=== PATIENT | male | born 1935 | race Caucasian/White ===

== ENCOUNTER 2020-10-25 12:26 | Inpatient (IN) | payer MEDICARE ==
[~2020-10-25] VITALS: Ht 172.7 cm; Wt 85.9 kg
[2020-10-25 13:47] LABS: BASOPHILS 0.4 % (0-2); EOSINOPHILS 3.2 % (0-7); HEMATOCRIT 38.9 % (36.0-48.0); HEMOGLOBIN 13.2 g/dL (12-16); IMMATURE GRANULOCYTES 0.1 % (0-5); LYMPHOCYTE ABS# 1.68 10x3/uL (1.18-3.74); LYMPHOCYTES 20.2 % (15-50); MCH 30.2 pg (26.0-34.0); MCHC 33.9 g/dL (31.0-37.0); MEAN PLATELET VOLUME 9.2 fL (7.4-10.4); MONOCYTES 7.9 % (2-11); NEUTROPHIL ABS# 5.68 10x3/uL (1.56-6.13); NEUTROPHILS 68.2 % (40-80); PLATELET COUNT 264 10x3/uL (130-400); RBC 4.37 10x6/uL (4.00-5.40); RDW 13.1 % (11.5-14.5); WBC 8.3 10x3/uL (4.8-10.8)
[2020-10-25 14:42] LABS: ALBUMIN 3.5 g/dL (3.4-5.0); ANION GAP 14.1 mmol/L (8-16); BILIRUBIN - TOTAL 0.38 mg/dL (0.2-1.3); CALCIUM 8.8 mg/dL (8.5-10.1); CARBON DIOXIDE 30.6 mmol/L (21.0-32.0); CHOL - HDL RATIO 3.1 ratio (2.3-4.1); CREATININE - SERUM 1.1 mg/dL (0.6-1.3); LDL-HDL RATIO 1.5 ratio (1.5-3.5); POTASSIUM - SERUM 3.7 mmol/L (3.5-5.1); PROTEIN - SERUM 6.9 g/dL (6.4-8.2); THYROID STIMULATING HORMONE 2.83 uIU/mL (0.36-3.74)
[2020-10-25] MEDS ORDERED: CARAFATE1 G PO (14:50)
[2020-10-25] MEDS ORDERED: CLONIDINE HCL0.1 MG PO (14:50)
[2020-10-25] MEDS ORDERED: ISOSORBIDE MONO30 M1 PO (14:51)
[2020-10-25] MEDS ORDERED: TYLENOL W/CODEI1 TAB PO (14:51)
[2020-10-25] MEDS ORDERED: IBUPROFEN800 MG PO (14:53)
[2020-10-25] MEDS ORDERED: PROCARDIA XL60 MG PO (14:54)
[2020-10-25] MEDS ORDERED: OMEPRAZOLE20 M1 PO (14:55)
[2020-10-25] MEDS ORDERED: KLONOPIN1 MG PO (14:55)
[2020-10-25] MEDS ORDERED: GLUCOPHAGE500 MG PO (14:56)
[2020-10-25] MEDS ORDERED: TENORMIN25 MG PO (14:56)
[2020-10-25] MEDS ORDERED: LEVSIN/ANASP0.125 MG PO (14:58)
[2020-10-25] MEDS ORDERED: DOXYCYCLINE HY100 M2 PO (15:00)
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
[2020-10-25 17:25] VITALS: BP 180/96
[2020-10-25 22:10] VITALS: BP 183/82
--- NOTE | 2020-10-25 23:24 | NUR ---
PT IS ALERT AND ORIENTED TO SELF AND PLACE. RECEIVED IN THE HALLWAY PLAYING CARDS WITH PEERS. VERY CONFUSED. WALKS AIMLESSLY AT TIMES. NO AGGRESSION NOTED. COMPLIANT WITH ALL HS MEDICATIONS. EASY TO REDIRECT. MONITOR FOR SAFETY.
[2020-10-26 08:00] VITALS: BP 151/68
[2020-10-26 08:13] LABS: RAPID PLASMA REAGIN Non Reactive (Non Reactive)
--- NOTE | 2020-10-26 11:26 | NUR ---
RECEIVED PATIENT IN HALLWAY BY NURSES STATION PACING. AWAKE AND ALERT X4. CALM AND COOPERATIVE WITH ASSESSMENT AT THIS TIME. PRESCRIBED MEDICATIONS PROVIDED ORDERED. MED COMPLIANT. PATIENT CAN BE VERY DEMANDING WITH STAFF. PATIENT TENDS TO TEST HIS BOUNDARIES AT TIMES WITH STAFF. PATIENT CONTINUES TO REQUEST NEEDED MEDICATION FOR LEG PAIN. MEDICATION PROVIDED ORDERED FOR PAIN. REDIRECT NEEDED. PATIENT CAN BECOME AGITATED AT TIMES UPON REDIRECTION. PATIENT CONTINUES TO COMPLAIN ABOUT HAVING LOOSE STOOLS. HOWEVER, KUB WAS COMPLETED PER MD ORDER AND CONSTIPATION WAS NOTED PER MD. MEDS PROVIDED ORDERED FOR CONSTIPATION. WILL CPOC.
--- NOTE | 2020-10-26 12:07 | NUR ---
RECEIVED PATIENT IN HALLWAY BY NURSES STATION SOCIALIZING WITH PEERS. AWAKE AND ALERT X2. CALM AND COOPERATIVE WITH ASSESSMENT AT THIS TIME. PRESCRIBED MEDICATIONS PROVIDED ORDERED. MED COMPLIANT AT THIS TIME. NO AGGRESSION NOTED AT THIS TIME. REDIRECT AND REORIENT NEEDED. FALL PRECAUTIONS IN PLACE FOR SAFETY. WILL CONTINUE PLAN OF CARE.
[2020-10-26 14:51] VITALS: Ht 172.7 cm; Wt 85.9 kg
[2020-10-26 20:16] VITALS: BP 128/46
--- NOTE | 2020-10-26 20:20 | NUR ---
PATIENT RECEIVED IN ROOM LYING IN BED. PATIENT ALERT AND ORIENTED TO PERSON AND PLACE ONLY. CALM AND COOPERATIVE WITH ASSESSMENT. NO AGGRESSIOM NOTED. MEDICATION COMPLIANT WITH HS MEDICATIONS. MONITOR FOR SAFETY AND FOLLOW POC.
[2020-10-27 07:38] LABS: BILIRUBIN NEGATIVE (NEGATIVE); KETONE NEGATIVE (NEGATIVE); NITRITE NEGATIVE (NEGATIVE); SQUAMOUS EPITHELIAL OCC HPF (0-4); UROBILINOGEN NORMAL mg/dL (< 2); WHITE CELLS - URINE OCC HPF (0-4)
[2020-10-27 07:39] LABS: BACTERIA FEW HPF (NONE SEEN)
[2020-10-27 08:00] VITALS: BP 123/66
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
--- NOTE | 2020-10-27 15:46 | NUR ---
Nutrition Follow-up: Diet: Diabetic PO intake: 100% x last 3 meals Last BM: 10/26/20 Wt: 190# (10/26/20) Meds noted: metformin. No new chem labs Recommend continue current diet. RD will follow-up within 7 days.
--- NOTE | 2020-10-27 17:21 | NUR ---
new order for once a day FSBS. 0600.
--- NOTE | 2020-10-27 17:37 | NUR ---
nurse speaking with . no agression noted at that time. confusion noted. pt socializies with peers and staff. ambulates. can make needs known. compliant with meds, vitals and assessments. redirect and reorient as needed. FSBS: 128 mg/dl. some weakness noted. bed alarm in place and active. will cont plan of care.
[2020-10-27 20:00] VITALS: BP 127/64
--- NOTE | 2020-10-27 21:58 | NUR ---
RECEIVED PATIENT IN HALLWAY SOCIALIZING WITH PEERS, HE IS PLEASANT, NOT AGGRESSIVE, HE IS CONFUSED. COMPLIANT WITH MEDS. CAN MAKE HIS NEEDS KNOWN. WILL FOLLOW POC
[2020-10-28 08:54] VITALS: BP 142/66
--- NOTE | 2020-10-28 13:37 | PN ---
PATIENT:CHANEL GOMEZ MEDICAL RECORD: [id number] LOCATION:NILSA Perdomo112 ADMISSION DATE: 10/25/20 PROGRESS NOTE DATE OF SERVICE: 10/27/2020 SUBJECTIVE: The patient's case was discussed with staff. He has no new complaint. OBJECTIVE: The patient denies that he would seek to harm himself or others. He is tolerating his medicines well. ASSESSMENT: Vascular dementia. PLAN: Current medicines have been reviewed. His long-term prognosis is guarded. I anticipate he can be transitioned home soon if this level of improvement continues. TRANSINT:[id number] Voice Confirmation ID: [id number] DOCUMENT ID: [id number] CHEYENNE QUEEN MD at 1337 CC: [id number] DICTATION DATE: 10/27/20 1625 EMERGENCY MEDICINE PHYSICIAN: 10/27/202052 ADM IN [place] [id number] [place] [id number]
--- NOTE | 2020-10-28 15:52 | NUR ---
ALERT, CALM, COOPERATIVE, PLEASANT. NO AGGRESSION OR OTHERVISE ADVERSE BEHAVIORS NOTED. MEDS ADMIN PER ORDERS WITH COMPLETE COMPLIANCE NOTED. NO ADVERSE REACTION TO MEDICATIONS. CONTINUE PLAN OF CARE OUTLINED.
[2020-10-28 20:00] VITALS: BP 142/68
--- NOTE | 2020-10-28 21:42 | NUR ---
RECEIVED PATIENT ON UNIT SOCIALIZING WIHT PEERS, HE IS CONFUSED TO SITUATION, HE CAN MAKE HIS NEEDS KNOWN. HE IS COMPLIANT WITH MEDS. WILL FOLLOW POC
[2020-10-29 09:55] VITALS: BP 139/75
--- NOTE | 2020-10-29 14:04 | NUR ---
NURSE SPOKE WITH MILDRED AT THIS TIME. NURSE STATED THE DOCTOR DID REQUEST ONE VISITATION BEFORE D/C. NURSE ASKED IF SHE WAS ABLE TO ATTEND ONE VISITATION THIS WEEKEND SO THAT WAY HE CAN D/C NEXT WEEK. THE DOCTOR REQUIRES ONE FACE TO FACE VISITATION. SHE STATED SHE WOULD CALL HER BROTHER IN [place] TO GET A RIDE SO SHE CAN COME VISIT. NURSE GAVE TIMES FOR VISITATION FOR THIS WEEKEND. SHE VERBALIZIED UNDERSTANDING.
--- NOTE | 2020-10-29 14:20 | NUR ---
PT REQUESTED A NERVE MEDICATION DUE TO OTHER PTS BEING VERBALLY AGGRESSIVE WITH STAFF AT THE DESK. ATIVAN 0.5 MG PO GIVEN PRN ORDER.
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
--- NOTE | 2020-10-29 14:55 | NUR ---
STAFF LOOKED IN ON PT HE WAS LAYING IN BED. REQUESTED 2 ICE CREAMS STATING HE WOULD THEN BE OKAY.
--- NOTE | 2020-10-29 15:20 | NUR ---
PRN EFFECTIVE AT THIS TIME.
--- NOTE | 2020-10-29 18:00 | NUR ---
Re'd patient this am ambulatory in hallway looking for "coffee". He is A/O times 3 to person, place, and situation. He is pleasant and quite. He is calm. Patient is med compliant and takes meds whole without difficulty.He is self fed. He has spent a lot of time with staff today discussing "country boy life", listening and talking about country music and talking bout his .l He participated in group/activities. He has shown no aggitation or aggressive behavior and denies any suicidal harm or ideations.
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
[2020-10-29 20:00] VITALS: BP 115/37
--- NOTE | 2020-10-29 20:57 | NUR ---
PT IS ALERT AND ORIENTED TO SELF AND AT TIMES SITUATION. HE IS RECEIVED IN HIS ROOM IN BED WITH EYES OPEN. HE STATES "I HOPE I CAN GET SOME SLEEP TONITE, I HAVENT BEEN SLEEPING WELL." EDUCATED PT ON HIS HS MEDICATONS. CALM AND COOPERATIVE WITH STAFF. NO AGGRESSION NOTED. COMPLIANT WITH ALL MEDICATIONS. EASY TO REDIRECT.
--- NOTE | 2020-10-29 21:52 | NUR ---
PT RESTLESS IN BED. RELATES THAT HE IS ANXIOUS. ADMINISTERED PRN ATIVAN 0.5MG PO. WILL MONITOR FOR EFFECTIVENESS.
--- NOTE | 2020-10-29 22:29 | NUR ---
PT STILL RESTLESS. RELATES ANXIETY. CONTINUE PLAN OF CARE.
[2020-10-30 08:07] VITALS: BP 109/67
--- NOTE | 2020-10-30 14:34 | NUR ---
ALERT, CALM, PLEASANT, TALKATIVE. NO AGGRESSION NOTED. MEDS ADMIN PER ORDERS. PT. FULLY MED COMPLIANT. NO ADVERSE REACTION TO MEDS. ENJOYS VISITING WITH STAFF AND OTHER PATIENTS. CONTINUE PLAN OF CARE, MONITORING FOR AGGRESSION.
[2020-10-30 20:00] VITALS: BP 146/69
--- NOTE | 2020-10-30 20:56 | NUR ---
PT IS ALERT AND ORIENTED TO SELF, PLACE AND TIME. RELATES THE HE IS CONCERNED ABOUT HIS BEING AT HOME WITH THEIR TWO DOGS ALONE IN THIS STORM. CALM AND COOPERATIVE WITH STAFF. NO AGGRESSION NOTED. COMPLIANT WITH ALL MEDICATIONS. RELATES CONCERN THAT HIS NEW MEDICATIONS WILL HELP HIM SLEEP BETTER. MEDICATION EDUCATION PROVIDED. EASY TO REDIRECT.
[2020-10-31 21:44] VITALS: BP 119/56
[2020-11-01 08:00] VITALS: BP 181/67
--- NOTE | 2020-11-01 14:04 | PN ---
PATIENT:CHANEL GOMEZ MEDICAL RECORD: [id number] LOCATION:NILSA Perdomo112 ADMISSION DATE: 10/25/20 PROGRESS NOTE DATE OF SERVICE: 10/28/2020 SUBJECTIVE: The patient's case was discussed with staff. He has no new complaint. OBJECTIVE: The patient denies intent to harm himself or others. He is impaired cognitively. ASSESSMENT: Vascular dementia. PLAN: The patient will be maintained on current medicines. I am going to ask that his come to visit him here at the hospital prior to discharge to see how he reacts. He does have this delusion about her, but that is difficult to ask him about and it would be better to see how he responds when she arrives. TRANSINT:[id number] Voice Confirmation ID: [id number] DOCUMENT ID: [id number] CHEYENNE QUEEN MD at 1404 CC: [id number] DICTATION DATE: 10/28/20 180 BRIM AND CROWN PRESSER: 10/28/20 1821 ADM IN [facility] [address] [place] [id number]
--- NOTE | 2020-11-01 17:30 | NUR ---
RECEIVED IN PATIENT ROOM. SITTING ON SIDE OF BED. CALM AND COOPERATIVE WITH CARE AND ASSESSMENT. NO AGGRESSIVE BEHAVIOR. REDIRECT AND REORIENT NEEDED. EATING DINNER AT THIS TIME. CONTINUE PLAN OF CARE.
[2020-11-01 22:16] VITALS: BP 120/54
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
--- NOTE | 2020-11-02 08:37 | NUR ---
GIL SPOKE TO PT'S , MILDRED, ABOUT DISCHARGE PLANS. MILDRED AGREED IF PT HAS A GOOD VISIT SUNDAY WITH HER SHE WILL TAKE HIM HOME. PT WILL NOT KNOW OF THESE PLANS JUST IN CASE THE VISIT DOESN'T GO WELL AND HE HAS TO STAY. NO NEEDS VOICED AT THIS TIME. GIL DID A REFERRAL TO [facility] ON [address] TO GET MORE ASSISTANCE IN THE HOME.
--- NOTE | 2020-11-02 16:48 | PN ---
PATIENT:CHANEL GOMEZ MEDICAL RECORD: [id number] LOCATION:N[facility] Perdomo112 ADMISSION DATE: 10/25/20 PROGRESS NOTE DATE OF SERVICE: 11/01/2020 SUBJECTIVE: The patient's case was discussed with staff. He has no new complaint. OBJECTIVE: The patient denies that he would seek to harm himself or others. He generally tolerates his medicines well. Eye contact is fair. ASSESSMENT: Vascular dementia. PLAN: Current medicines have been reviewed and will be maintained. His long-term prognosis is guarded. TRANSINT:[id number] Voice Confirmation ID: [id number] DOCUMENT ID: [id number] CHEYENNE QUEEN MD at 1648 CC: [id number] DICTATION DATE: 11/01/20 174 HEALTH ASSISTANT: 11/02/20 0056 ADM IN [facility] [address] [place] [address]
--- NOTE | 2020-11-02 17:48 | NUR ---
REC'D PT IN HALLWAY. AWAKE AND ALERT X 2. CALM AND COOPERATIVE WITH ASSESSMENT. PRESCRIBED MEDS PROVIDED ORDERED. MED COMPLIANT. NO BEHVIORS NOTED. WILL CPOC.
[2020-11-02 20:00] VITALS: BP 129/57
--- NOTE | 2020-11-02 20:29 | NUR ---
RECEIVED IN HALLWAY. SOCAILIZING WITH STAFF AND PEERS. CALM AND COOPERATIVE WITH CARE AND ASSESSMENT. NO SIGNS OF AGGRESSION. REDIRECT AND REORIENT NEEDED. RESTING IN BED WITH EYES CLOSED AT THIS TIME. CONTINUE PLAN OF CARE.
[2020-11-03 08:16] VITALS: BP 134/62
--- NOTE | 2020-11-03 10:35 | NUR ---
Received patient sitting on his room on his bed. Calm and cooperative with assessment at this time. Awake and alert to person and place at this time. Prescribed medications provided as ordered. Med compliant. No aggression noted. No other behaviors noted at this time. Fall precautions in place for safety. Redirect and reorient as needed. Will continue plan of care.
--- NOTE | 2020-11-03 13:26 | NUR ---
Nutrition Re-Assessment Diet: Diabetic PO intake: 100% last 12 meals Last BM: 11/02/20 Wt: 189# (10/31/20); Admit Wt: 190# (10/25/20) Meds noted: probiotics, metformin Labs noted: POC Glu 105(WNL) Estimated nutrition needs remain unchanged from initial nutrition assessment at this time. Nutrition diagnosis: Altered nutrition related lab values r/t DM AEB need for metformin to keep blood glucose WNL. Patient is meeting nutrition goals at this time. Recommendations/Interventions: -Recommend continue current diet. Will continue to honor food preferences within diet restrictions. -RD will continue to monitor PO intake and wt trend. -RD will follow-up within 7 days.
--- NOTE | 2020-11-03 16:20 | PN ---
PATIENT:CHANEL GOMEZ MEDICAL RECORD: [id number] LOCATION:[facility]vin112 ADMISSION DATE: 10/25/20 PROGRESS NOTE DATE OF SERVICE: 11/02/2020 SUBJECTIVE: The patient's case was discussed with staff. He has no new complaints. OBJECTIVE: The patient is interactive, calm, cooperative, but has impaired short-term memory. He is mostly oriented and his level of cognition has improved, but he is still suffering from dementia. ASSESSMENT: Vascular dementia. PLAN: The patient is going to have his visits, and if that goes well, he can be discharged. He actually has some insight about his confusion and aggression with her at home. I have not met her face to face. I am told by our social sciences research scientist that she is frightened of him. This may necessitate an inpatient residential setting for him if her fears cannot reasonably be addressed. TRANSINT:[id number] Voice Confirmation ID: [id number] DOCUMENT ID: [id number] CHEYENNE QUEEN MD at 1620 CC: [id number] DICTATION DATE: 11/02/20 170 THEATER COMPANY PRODUCER: 11/03/20 0022 ADM IN [facility] [address] [place] [address]
[2020-11-03] MEDS ORDERED: ACETAMINOPHEN500 M1 PO (16:47)
[2020-11-03] MEDS ORDERED: CATAPRES PO (16:47)
[2020-11-03] MEDS ORDERED: Keflex PO (16:47)
[2020-11-03] MEDS ORDERED: KLONOPIN0.5 MG PO (16:48)
[2020-11-03] MEDS ORDERED: NAMENDA5 MG PO (16:48)
[2020-11-03] MEDS ORDERED: TRAZODONE HCL100 MG PO (16:48)
[2020-11-03] MEDS ORDERED: FLORAJEN3 CAPS460 MG PO (16:48)
[2020-11-03 20:00] VITALS: BP 105/54
--- NOTE | 2020-11-03 21:24 | NUR ---
PT IS ALERT AND ORIENTED X4. RECEIVED IN HIS ROOM RESTING IN BED WITH EYES CLOSED. COMPLIANT WITH ALL MEDICATIONS. EASY TO REDIRECT. RELATES HE IS READY TO VISITATION WITH HIS TOMORROW. REFUSES HS SNACK. NO AGGRESSION NOTED. MONITOR FOR SAFETY.
--- NOTE | 2020-11-04 07:20 | NUR ---
PT FAMILY CALLED AND WANTED TO KNOW IF THE PT WAS IN OUR UNIT. PASSCODE NOT GIVEN. HE DID INQUIRE ABOUT HOW TO REACH THE UNIT FOR VISITATION. NURSE GAVE DIRECTIONS AND INSTRUCTIONS ON HOW TO GET HERE. VERBALIZIED UNDERSTANDING.
[2020-11-04 08:51] VITALS: BP 130/71
--- NOTE | 2020-11-04 14:43 | NUR ---
Patient rec'd this am sitting up in a w/c in the hallway.He is A/O times 2 to person and situation. He is med compliant and takes meds whole. He attended group activities/therapy. He has been calm and cooperative today. No aggressive behavior no sexual misconduct. Med changes 11/03 with Hall. He has sat by this nurse in activities and has attempted to carry on a conversation.
--- NOTE | 2020-11-04 15:00 | NUR ---
Rec'd patient up this am. Ambulatory in the hallway. He is A/O times 3 person, place, situation. He is calm and cooperative. He is med compliant and takes meds whole. He participated in group activities./ therapy and participated well. He is directable and redirectable. He has displayed no aggressive behavior with staff or other patients.
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
--- NOTE | 2020-11-04 16:13 | PN ---
PATIENT:CHANEL GOMEZ MEDICAL RECORD: [id number] LOCATION:N[facility] Perdomo112 ADMISSION DATE: 10/25/20 PROGRESS NOTE DATE OF SERVICE: 11/03/2020 SUBJECTIVE: The patient's case was discussed with staff. He has no new complaint. OBJECTIVE: The patient has shown significant improvement in his underlying condition. He is tolerating his medications well. He has had no aggressive behavior. ASSESSMENT: Dementia. PLAN: The patient's is going to visit him tomorrow. If that visitation goes well, he will be discharged home. His long-term prognosis is guarded. TRANSINT:[id number] Voice Confirmation ID: [id number] DOCUMENT ID: [id number] CHEYENNE QUEEN MD at 1613 CC: [id number] DICTATION DATE: 11/03/20 164 STORE ASSOCIATE: 11/03/20 2346 DIS IN 11/04/20 [facility] [address] [place] [address]
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
== END 2020-11-04 15:30 | disposition home or self-care (01) | DRG 57 ==
LOC: D.PSYCH 12:26 → EDSEX 12:29 → D.PSYCH 12:29
PROVIDERS: ADMIT Psychiatry & Neurology Psychiatry; ATTEND Psychiatry & Neurology Psychiatry
DX: G30.1 Alzheimer's disease with late onset (principal); F02.81 Dementia in other diseases classified elsewhere, unspecified severity, with behavioral disturbance; I10 Essential (primary) hypertension; E11.9 Type 2 diabetes mellitus without complications; K21.9 Gastro-esophageal reflux disease without esophagitis; I25.10 Atherosclerotic heart disease of native coronary artery without angina pectoris; C43.31 Malignant melanoma of nose; Z95.5 Presence of coronary angioplasty implant and graft; R32 Unspecified urinary incontinence; Z86.73 Personal history of transient ischemic attack (TIA), and cerebral infarction without residual deficits